=== PATIENT | female | born 1950 | race Caucasian/White ===

== ENCOUNTER 2017-01-31 17:42 | Emergency (ER) | payer MEDICARE, OTHER ==
[2017-01-31 17:42] VITALS: BMI 35.0
[2017-01-31 19:08] LABS: BASO # 0.1 K/uL (0.0-0.2); BASO % 1.3 % (0.0-2.0); EOS # 0.4 K/uL (0.0-0.7); HEMATOCRIT 39.5 % (34.0-47.0); LYMPH # 2.4 K/uL (1.0-4.3); LYMPH % 33.4 % (20.0-40.0); MEAN CELL VOLUME 83.6 fL (81.0-99.0); MEAN CORPUSCULAR HEMOGLOBIN 28.7 pg (27.0-31.0); MEAN CORPUSCULAR HGB CONC 34.3 g/dL (33.0-37.0); MEAN PLATELET VOLUME 8.1 fL (7.2-11.7); MONO # 0.7 K/uL (0.0-0.8); MONO % 9.7 % (0.0-10.0); RED CELL DISTRIBUTION WIDTH 13.3 % (11.5-14.5); WHITE BLOOD COUNT 7.3 K/uL (4.8-10.8)
[2017-01-31 19:20] LABS: ALB/GLOB RATIO 1.5 (1.0-2.1); ALKALINE PHOSPHATASE 105 U/L (38-126); ALT/SGPT 37 U/L (9-52); AST/SGOT 32 U/L (14-36); BILIRUBIN,TOTAL 0.8 mg/dL (0.2-1.3); BLOOD UREA NITROGEN 11 mg/dL (7-17); CALCIUM 9.2 mg/dl (8.6-10.4); CARBON DIOXIDE 26 mmol/L (22-30); CHLORIDE 106 mmol/L (98-107); GFR AFRICAN-AMERICAN > 60; GLUCOSE,RANDOM 104 mg/dL (65-105); MAGNESIUM 1.7 mg/dL (1.6-2.3); POTASSIUM 3.8 mmol/L (3.6-5.2); SODIUM 142 mmol/L (132-148); TOTAL PROTEIN 7.3 g/dL (6.3-8.3)
--- NOTE | 2017-01-31 19:29 | C.PDOC ---
History Of Present Illness 66 year old female with Hx of lupus presents to the ED for evaluation of dizziness. Patient states she was cleaning the floor this morning (>6 hours ago) , stood up felt, and then felt lightheaded. She reports that she sat down and her symptoms resolved. She denies additional episodes. She reports that she called her shader and toner who advised her to come to the ED for evaluation. Patient denies CP, SOB, fever, nausea, vomit, headache, visual changes. Time Seen by Provider: 01/31/17 18:32 Chief Complaint (Nursing): Medical Clearance History Per: Patient History/Exam Limitations: no limitations Onset/Duration Of Symptoms: Hrs Current Symptoms Are (Timing): Gone Severity: None Recent travel outside of the [place]: No Additional History Per: Patient Past Medical History Reviewed: Historical Data, Nursing Documentation, Vital Signs Vital Signs: Last Vital Signs Temp 97.7 F 01/31/17 20:04 Pulse 62 01/31/17 20:04 Resp 16 01/31/17 20:04 BP 160/75 H 01/31/17 20:04 Pulse Ox 98 01/31/17 20:04 - Medical History PMH: Gall Bladder Disease, HTN Denies: Chronic Kidney Disease Surgical History: No Surg Hx - [facility] Procedures LAPAROSCOPIC CHOLECYSTECTOMY (07/30/13) Family History: States: Unknown Family Hx - Social History Hx Alcohol Use: No Hx Substance Use: No - Immunization History Hx Tetanus Toxoid Vaccination: No Hx Influenza Vaccination: No Hx Pneumococcal Vaccination: No Review Of Systems Constitutional: Negative for: Fever, Chills, Weakness, Malaise, Weight loss Cardiovascular: Negative for: Chest Pain, Palpitations Respiratory: Negative for: Cough, Shortness of Breath, SOB with Excertion, Wheezing Gastrointestinal: Negative for: Nausea, Vomiting, Abdominal Pain, Constipation Genitourinary: Negative for: Frequency, Hematuria, Vaginal Discharge, Vaginal Bleeding Musculoskeletal: Negative for: Neck Pain Skin: Negative for: Rash Neurological: Positive for: Dizziness. Negative for: Weakness, Numbness, Incoordination, Change in Speech, Confusion, Seizures, Altered Mental Status, Headache Physical Exam - Physical Exam Appears: Well, Non-toxic, No Acute Distress Skin: Normal Color, Warm, Dry Head: Atraumatic, Normacephalic Eye(s): bilateral: Normal Inspection, PERRL, EOMI Nose: No Discharge Oral Mucosa: Moist Neck: Normal ROM, Supple Chest: Symmetrical Cardiovascular: Rhythm Regular, No Murmur Respiratory: Normal Breath Sounds, No Rales, No Rhonchi, No Wheezing Gastrointestinal/Abdominal: Soft, No Tenderness Back: Normal Inspection, No CVA Tenderness Extremity: Normal ROM (x4), No Pedal Edema, No Calf Tenderness, No Swelling Neurological/Psych: Oriented x3, Normal Speech, Normal Cognition, Normal Cranial Nerves, Normal Motor, Normal Sensation Gait: Steady ED Course And Treatment - Laboratory Results Result Diagrams: 01/31/17 18:59 01/31/17 18:59 ECG: Interpreted By Me, Viewed By Me ECG Rhythm: Sinus Rhythm ECG Interpretation: Normal Interpretation Of ECG: EKG NSR 66 BPM with normal intervals, normal axis, and no ST or T wave abnormalities. Rate From EC O2 Sat by Pulse Oximetry: 97 (On RA) Pulse Ox Interpretation: Normal Medical Decision Making Medical Decision Making: Plan: * EKG * Blood work * CXR * aspirin 324 mg PO EKG NSR 66 BPM with normal intervals, normal axis, and no ST or T wave abnormalities. Cxray negative. Labs grossly normal. Will dc to follow-up with PMD Disposition - Disposition Disposition: HOME/ ROUTINE Disposition Time: 19:48 Condition: GOOD Additional Instructions: Follow-up with PMD within 2 days. Return to ED if condition worsens or symptoms persist. Forms: [employer] (Guyanese) - Clinical Impression Clinical Impression: Dizziness - Scribe Statement The provider has reviewed the documentation as recorded by the Scribe Werner Barlow All medical record entries made by the Scribe were at my direction and personally dictated by me. I have reviewed the chart and agree that the record accurately reflects my personal performance of the history, physical exam, medical decision making, and the department course for this patient. I have also personally directed, reviewed, and agree with the discharge instructions and disposition.
[2017-01-31 20:05] VITALS: BP 160/75; PULSE 62; RESP 16; TEMP 97.7
[2017-01-31 21:56] VITALS: O2SAT 97
--- NOTE | 2017-02-01 08:34 | RAD ---
HISTORY: dizziness COMPARISON: None available. TECHNIQUE: Chest PA and lateral FINDINGS: LUNGS: No focal consolidation. Please note that chest x-ray has limited sensitivity for the detection of pulmonary masses. PLEURA: No significant pleural effusion identified. No definite pneumothorax . CARDIOVASCULAR: Heart size appears within normal limits. Atherosclerotic calcification of an ectatic aorta. OSSEOUS STRUCTURES: Degenerative changes. VISUALIZED UPPER ABDOMEN: Unremarkable. OTHER FINDINGS: None. IMPRESSION: No focal consolidation, significant pleural effusion, or definite pneumothorax identified.
--- NOTE | 2017-02-02 23:00 | CARD ---
APPROVED REPORT EKG Measurement Heart [id number] <Conclusion> Normal sinus rhythm Normal ECG
== END 2017-01-31 20:05 | disposition home or self-care (01) ==
LOC: C.ER 17:42
DX: R42 Dizziness and giddiness (principal)

== ENCOUNTER 2018-04-24 07:50 | Outpatient (CLI) | payer MEDICARE | END 2018-04-24 07:51 | disposition home or self-care (01) | LOC: C.MAMMO 07:50 | DX: Z12.39 Encounter for other screening for malignant neoplasm of breast (principal) ==